=== PATIENT | female | born 1990 | race Caucasian/White ===

== ENCOUNTER → 2017-11-18 | Outpatient (CLI) | payer OTHER ==
[2017-11-18 15:06] LABS: COMPLEMENT C3 87.8 MG/DL (90-180); COMPLEMENT C4 16.9 MG/DL (10-40); IMMUNOGLOBULIN E 80.7 IU/ML (<100); IMMUNOGLOBULIN G 983 MG/DL (681-1648); IMMUNOGLOBULIN M 75.9 MG/DL (40-230)
== END ==
LOC: M LAB 13:24
DX: H10.45 Other chronic allergic conjunctivitis (principal); J30.81 Allergic rhinitis due to animal (cat) (dog) hair and dander; J32.0 Chronic maxillary sinusitis; J30.1 Allergic rhinitis due to pollen
CPT/HCPCS: 82785

== ENCOUNTER → 2020-06-20 | Outpatient (CLI) | payer OTHER ==
[2020-06-20 14:35] LABS: IMMUNOGLOBULIN M 69.8 MG/DL (40-230)
[2020-06-22 16:12] LABS: ALPHA 1 ANTITRYPSIN 136 mg/dL (100-188); D001-IgE D pteronyssinus 0.38 kU/L (Class I); E001-IgE Cat Epith/Dander < 0.10 kU/L (Class 0); E003-IGE HORSE EPITHELIA/DAND <0.10 kU/L (Class 0); E004-IGE COW DANDER 0.11 kU/L (Class 0/I); E005-IgE Dog Dander 0.46 kU/L (Class I); F002-IgE Milk < 0.10 kU/L (Class 0); F004-IgE Wheat < 0.10 kU/L (Class 0); F013-IgE Peanut < 0.10 kU/L (Class 0); F014-IgE Soybean < 0.10 kU/L (Class 0); F026-IgE Pork < 0.10 kU/L (Class 0); F027-IgE Beef < 0.10 kU/L (Class 0); F245-IgE Egg, Whole < 0.10 kU/L (Class 0); FX02-IgE Food Mix (Sea Foods) Negative (.); G002-IgE Bermuda Grass < 0.10 kU/L (Class 0); G008-IgE Kentucky Bluegrass 0.17 kU/L (Class 0/I); M001-IgE Penicillium chrysogen < 0.10 kU/L (Class 0); M002 IgE Cladosporium herbaru < 0.10 kU/L (Class 0); M003 IgE Aspergillus fumigatu < 0.10 kU/L (Class 0); M006-IgE Alternaria alternata 2.74 kU/L (Class III); T001-IgE Maple/Box Elder < 0.10 kU/L (Class 0); T003-IgE Common Silver Birch 0.52 kU/L (Class I); T006-IgE Cedar, Mountain < 0.10 kU/L (Class 0); T007-IgE Oak, White 0.12 kU/L (Class 0/I); T008-IgE Elm, American < 0.10 kU/L (Class 0); T015-IgE Ash, White < 0.10 kU/L (Class 0); T041-IgE Hickory, White 0.11 kU/L (Class 0/I); T070-IgE White Mulberry < 0.10 kU/L (Class 0); W009-IgE Plantain, English < 0.10 kU/L (Class 0); W014-IgE Pigweed, Rough < 0.10 kU/L (Class 0); W018-IgE Sheep Sorrel < 0.10 kU/L (Class 0)
== END ==
LOC: M LAB 13:20
PROVIDERS: ATTEND Nurse Practitioner Family
DX: J30.1 Allergic rhinitis due to pollen (principal); J30.81 Allergic rhinitis due to animal (cat) (dog) hair and dander; J30.89 Other allergic rhinitis; H10.45 Other chronic allergic conjunctivitis

== ENCOUNTER → 2020-11-15 | Outpatient (REF) | payer OTHER ==
[2020-11-15 17:31] LABS: FERRITIN 78 NG/ML (8-252); IRON (FE) 172 UG/DL (50-170); PERCENT SATURATION 46.6 % (13.2-45.0); TOTAL IRON BINDING CAPACITY 369 UG/DL (250-450)
[2020-11-15 18:36] LABS: HCG, SERUM QUALITATIVE NEGATIVE (NEGATIVE)
== END ==
LOC: M LAB REF 16:16
PROVIDERS: ATTEND Internal Medicine
DX: N93.9 Abnormal uterine and vaginal bleeding, unspecified (principal)

== ENCOUNTER → 2020-12-01 | Outpatient (CLI) | payer OTHER ==
--- NOTE | 2020-12-01 15:39 | REP ---
INDICATION: MENORRHAGIA COMPARISON: 01/24/2015 TECHNIQUE: Transabdominal pelvic ultrasound followed by transvaginal examination for better evaluation of the endometrium and adnexa with color Doppler evaluation of the ovaries. FINDINGS: Bladder is unremarkable and measures 8.1 x 7.9 x 3.7 cm. Normal anteverted uterus measures 7.7 x 3.2 x 4.4 cm. The endometrial complex measures 2 mm thickness. No discrete uterine or endometrial abnormalities are appreciated. Bilateral ovaries are normal in appearance and vascularity without evidence for torsion. Right ovary measures 3.8 x 2.3 x 2.4 cm and includes 2 cm dominant follicle/physiologic cyst; R I = 0.57. Left ovary measures 3.2 x 2.9 x 2.4 cm and includes multiple follicles; R I = 0.50. No pelvic fluid or adnexal mass lesion. IMPRESSION: Essentially normal pelvic ultrasound. <Electronically signed by Jaden Puentes > 12/01/20 [id number]
== END ==
LOC: M RAD 14:51
PROVIDERS: ATTEND Internal Medicine
DX: N92.0 Excessive and frequent menstruation with regular cycle (principal)

== ENCOUNTER → 2021-10-06 | Outpatient (CLI) | payer OTHER | LOC: M RAD 11:55 | PROVIDERS: ATTEND Internal Medicine | DX: M54.2 Cervicalgia (principal); M25.511 Pain in right shoulder; M54.6 Pain in thoracic spine ==

== ENCOUNTER → 2022-10-30 | Outpatient (CLI) | payer OTHER ==
[~2022-10-30] MED LIST: PROHANCE 279.3MG/ML 15ML VIAL As Ordered ONE
== END ==
LOC: M RAD 15:41
PROVIDERS: ATTEND Obstetrics & Gynecology Reproductive Endocrinology
DX: Q51.3 Bicornate uterus (principal)

== ENCOUNTER → 2022-11-09 | Outpatient (REF) | payer OTHER | LOC: M LAB REF 16:17 | PROVIDERS: ATTEND Internal Medicine | DX: N91.2 Amenorrhea, unspecified (principal) ==

== ENCOUNTER → 2022-12-14 | Outpatient (CLI) | payer OTHER ==
[2022-12-14 16:19] LABS: HEMATOCRIT 35.4 % (36.0-47.0); HEMOGLOBIN 12.3 g/dl (12.0-15.5); MEAN CORPUSCULAR HEMOGLOBIN 32.6 pg (27.0-33.0); MEAN CORPUSCULAR HGB CONC 34.7 g/dl (32.0-36.5); MEAN CORPUSCULAR VOLUME 93.9 fl (80.0-96.0); PLATELET COUNT, AUTOMATED 251 10^3/uL (150-450); RED BLOOD COUNT 3.77 10^6/uL (4.00-5.40); WHITE BLOOD COUNT 10.9 10^3/uL (4.0-10.0)
[2022-12-14 17:18] LABS: HIV 1&2 SCREEN NEGATIVE (NEGATIVE)
[2022-12-14 17:27] LABS: HEPATITIS C VIRUS ABY INDEX 0.1 INDEX (<0.8)
[2022-12-14 18:15] LABS: GC DNA AMPLIFICATION NEGATIVE (NEGATIVE)
== END ==
LOC: M PLALAB 13:32
PROVIDERS: ATTEND Specialist
DX: Z34.81 Encounter for supervision of other normal pregnancy, first trimester (principal)

== ENCOUNTER → 2023-02-18 | Outpatient (CLI) | payer OTHER | LOC: M WHC 10:20 | PROVIDERS: ATTEND Obstetrics & Gynecology | DX: O32.1XX0 Maternal care for breech presentation, not applicable or unspecified (principal); Z3A.19 19 weeks gestation of pregnancy ==

== ENCOUNTER → 2023-03-18 | Outpatient (CLI) | payer OTHER | LOC: M WHC 06:46 | PROVIDERS: ATTEND Obstetrics & Gynecology | DX: Z36.2 Encounter for other antenatal screening follow-up (principal) ==

== ENCOUNTER → 2023-04-18 | Outpatient (CLI) | payer OTHER | LOC: M LAB 06:29 | PROVIDERS: ATTEND Obstetrics & Gynecology | DX: R73.09 Other abnormal glucose (principal) ==

== ENCOUNTER 2023-07-13 19:47 | Inpatient (IN) | payer OTHER ==
[~2023-07-13] VITALS: Ht 157.5 cm; Wt 81.7 kg
[2023-07-13] MEDS ORDERED: CARBOPROST TROMETHAMINE 250 MCG/ML AMP IM PRN (20:15)
[2023-07-13] MEDS ORDERED: METHYLERGONOVINE MALEATE 0.2MG/ML 1ML VIAL IM PRN (20:15)
[2023-07-13] MEDS ORDERED: TRANEXAMIC ACID INJection 1,000 MG in NS 100 ML IV PRN (20:15)
[2023-07-13] MEDS ORDERED: LACTATED RINGER'S 1000 ML IV STA (20:15)
[2023-07-13] MEDS ORDERED: LIDOCAINE 1% MDV 20ML VIAL INFIL PRN (20:15)
[2023-07-13] MEDS ORDERED: OXYTOCIN DRIP 30 UNITS in IV 1 EA IV PRN (20:15)
[2023-07-13 20:16] VITALS: BP 119/64
[2023-07-13] MEDS ORDERED: WELLTAB38 PO (21:16)
[2023-07-13] MEDS ORDERED: PRENTAB9 PO (21:16)
[2023-07-13] MEDS: miSOPROStol 50MCG 1/2 TABLET PO SCH (21:30)
[2023-07-13 21:32] VITALS: BP 114/67
[2023-07-13 21:36] LABS: HEMATOCRIT 38.4 % (36.0-47.0); HEMOGLOBIN 13.3 g/dl (12.0-15.5); MEAN CORPUSCULAR HEMOGLOBIN 32.3 pg (27.0-33.0); MEAN CORPUSCULAR HGB CONC 34.6 g/dl (32.0-36.5); MEAN CORPUSCULAR VOLUME 93.2 fl (80.0-96.0); PLATELET COUNT, AUTOMATED 230 10^3/uL (150-450); RED BLOOD COUNT 4.12 10^6/uL (4.00-5.40); WHITE BLOOD COUNT 12.5 10^3/uL (4.0-10.0)
[2023-07-14] VITALS (86 sets, daily range): BP systolic 86–141; BP diastolic 49–81
[2023-07-14] MEDS: miSOPROStol 50MCG 1/2 TABLET PO SCH (01:36)
[2023-07-14] MEDS ORDERED: OXYTOCIN 30UNITS IN 0.9% NaCl 500ML IV BAG As Ordered ONE (05:27)
[2023-07-14] MEDS ORDERED: diphenhydrAMINE 50MG/ML VIAL IV PRN (05:30)
[2023-07-14] MEDS ORDERED: NALOXONE INJ 0.4MG/1ML VIAL IV PRN (05:30)
[2023-07-14] MEDS ORDERED: LR 500 ML IV PRN (05:30)
[2023-07-14] MEDS ORDERED: ONDANSETRON 4MG 2ML VIAL IV PRN ×2 (05:30→23:05)
[2023-07-14] MEDS ORDERED: EPIDURAL/PCA KEYS XX PRN (05:30)
[2023-07-14] MEDS: FENTANYL/ROPIVACAINE/NACL BAG 100 ML EPIDURAL SCH ×3 (05:59→21:48)
[2023-07-14] MEDS ORDERED: OXYTOCIN DRIP 30 UNITS in IV 1 EA IV SCH ×2 (06:30→23:05)
[2023-07-14] MEDS: ePHEDrine SULFATE 25 MG/5 ML(5MG/ML) SYRINGE IVP PRN ×3 (07:54→09:56)
[2023-07-14] MEDS: LR 1,000 ML IV SCH ×3 (08:17→14:33)
[2023-07-14] MEDS ORDERED: ePHEDrine SULFATE 25 MG/5 ML(5MG/ML) SYRINGE IVP ONE (13:15)
[2023-07-14] MEDS ORDERED: RHOGAM 300MCG (1500IU) INJ IM SCH (23:05)
[2023-07-14] MEDS ORDERED: ANUSOL HC CREAM 30GM TOP PRN (23:05)
[2023-07-14] MEDS ORDERED: DIBUCAINE 1% OINTMENT 30GM TOP PRN (23:05)
[2023-07-14] MEDS ORDERED: ACETAMINOPHEN 500 MG TAB PO PRN (23:05)
[2023-07-14] MEDS ORDERED: ACETAMINOPHEN TAB 650MG DOSE (2X325MG) PO PRN (23:05)
[2023-07-14] MEDS ORDERED: IBUPROFEN 600MG TAB PO PRN (23:05)
[2023-07-14] MEDS ORDERED: DOCUSATE SODIUM 100MG CAPSULE PO PRN (23:05)
[2023-07-15 01:15] VITALS: BP 120/61; O2SAT 98
[2023-07-15] MEDS: IBUPROFEN 800 MG TAB PO PRN ×3 (01:17→19:46)
[2023-07-15 06:00] VITALS: BP 117/58; O2SAT 97
[2023-07-15] MEDS: PRENATAL VITAMINS CHEWABLE TABLET PO SCH (09:24)
[2023-07-15 18:00] VITALS: BP 111/55; O2SAT 94
[2023-07-16 06:00] VITALS: BP 106/55; O2SAT 100
[2023-07-16] MEDS ORDERED: IBUP-1022 PO (08:22)
[2023-07-16] MEDS ORDERED: MEASLES,MUMPS,RUBELLA VACCINE INJ (MMR-II) SC.IMMUN ONE (09:00)
[2023-07-16] MEDS: PRENATAL VITAMINS CHEWABLE TABLET PO SCH (09:34)
[2023-07-16] MEDS ORDERED: HEPATITIS B VAC *BIRTH DOSE ONLY*(ENGERIX) 10 MCG/0.5 ML SYRINGE As Ordered ONE (13:25)
== END 2023-07-16 13:06 | disposition home or self-care (01) | DRG 807 ==
LOC: M LDI 19:47 → M OBS 07-15 01:14
PROVIDERS: ADMIT Obstetrics & Gynecology; ATTEND Obstetrics & Gynecology
PROC: 3E0P7GC Introduction of Other Therapeutic Substance into Female Reproductive, Via Natural or Artificial Opening (ICD-10-PCS; 2023-07-13)
PROC: 10E0XZZ Delivery of Products of Conception, External Approach (ICD-10-PCS; principal; 2023-07-14)
PROC: 0KQM0ZZ Repair Perineum Muscle, Open Approach (ICD-10-PCS; 2023-07-14)
DX: O48.0 Post-term pregnancy (principal); Z37.0 Single live birth; Z3A.40 40 weeks gestation of pregnancy; O99.344 Other mental disorders complicating childbirth; F32.A Depression, unspecified; Z88.2 Allergy status to sulfonamides; Z88.5 Allergy status to narcotic agent; Z88.6 Allergy status to analgesic agent; Z79.899 Other long term (current) drug therapy; O70.1 Second degree perineal laceration during delivery

== ENCOUNTER → 2023-09-03 | Outpatient (REF) | payer OTHER ==
[~2023-09-03] MED LIST changes: +IBUP-1022 PO; +PRENTAB9 PO; -PROHANCE 279.3MG/ML 15ML VIAL As Ordered ONE; +WELLTAB38 PO
[2023-09-03 18:52] LABS: APPEARANCE, URINE HAZY (CLEAR); BACTERIA, URINE AUTO 1+ (NEGATIVE); BILIRUBIN, URINE AUTO NEGATIVE (NEGATIVE); BLOOD, URINE BLOOD NEGATIVE (NEGATIVE); COLOR, URINE AMBER (YELLOW); GLUCOSE, URINE (UA) AUTO NEGATIVE (NEGATIVE); KETONE, URINE AUTO NEGATIVE (NEGATIVE); LEUKOCYTE ESTERASE, URINE AUTO NEGATIVE (NEGATIVE); MUCUS, URINE SMALL (NEGATIVE); NITRITE, URINE AUTO NEGATIVE (NEGATIVE); PROTEIN, URINE AUTO NEGATIVE (NEGATIVE); RBC, URINE AUTO 1 /HPF (0-3); SQUAMOUS EPITHELIAL CELL UR AU 2 /HPF (0-6); UROBILINOGEN, URINE AUTO 0.2 mg/dL (0.0-2.0); WBC, URINE AUTO 0 /HPF (0-3)
== END ==
LOC: M SFHCWAGY 16:56
PROVIDERS: ATTEND Obstetrics & Gynecology
DX: R35.0 Frequency of micturition (principal)

== ENCOUNTER → 2024-08-19 | Outpatient (REF) | payer OTHER | LOC: M SFHCWAGY 09:40 | PROVIDERS: ATTEND Obstetrics & Gynecology | DX: Z12.4 Encounter for screening for malignant neoplasm of cervix (principal) | CPT/HCPCS: 87624; G0123 ==